=== PATIENT | female | born 1960 ===

== ENCOUNTER 2017-11-02 08:04 | Emergency (ER) | payer BC, OTHER ==
[2017-11-02 08:39] LABS: ABS Basophils 0.1 10^3/ul (0-0.2); ABS Eosinophils 0.1 10^3/ul (0-0.6); ABS Lymphocytes 1.2 10^3/ul (1.0-4.8); ABS Monocytes 0.8 10^3/ul (0-0.8); ABS Neutrophils 9.3 10^3/ul (1.5-7.7); ABS Nucleated RBC 0 10^3/ul; Eosinophil % 0.7 % (0-6); Hematocrit 39 % (35-47); Hemoglobin 13.5 g/dl (12.0-16.0); Lymphocyte % 10.3 % (25-47); Mean Corpuscular HGB Conc 35 g/dl (31-36); Mean Corpuscular Hemoglobin 31 pg (27-31); Mean Corpuscular Volume 90 fL (80-97); Mean Platelet Volume 6.8 um3 (7.4-10.4); Nucleated Red Blood Cells % 0; Platelet Count 346 10^3/ul (150-450); Red Blood Count 4.36 10^6/ul (4.0-5.4); Red Cell Distribution Width 16 % (10.5-15); White Blood Count 11.5 10^3/ul (3.5-10.8)
[2017-11-02 08:50] LABS: Urine Appearance Cloudy; Urine Blood Negative (Negative); Urine Color Yellow; Urine Ketones Negative (Negative); Urine Protein Negative (Negative); Urine Urobilinogen Negative (Negative)
[2017-11-02 08:57] LABS: EGFR Non-African American 71.1 (>60)
[2017-11-02] MEDS ORDERED: Iohexol 300* (CONTRAST) 10 ML SDV IV ONE (09:15)
[2017-11-02] MEDS ORDERED: Morphine INJ* 4 MG/ML 1 ML SYRINGE (NEW SYRINGE VERSION) IV ONE (10:54)
[2017-11-02] MEDS ORDERED: Ondansetron INJ* 2 MG/ML VIAL IV ONE (10:54)
[2017-11-02] MEDS ORDERED: Morphine VIAL* 4 MG/ML VIAL (1 ml vial) IV ONE (10:55)
[2017-11-02] MEDS ORDERED: Ondansetron INJ* 2 MG/ML VIAL ONE (10:56)
--- NOTE | 2017-11-02 11:55 | RAD ---
Indication: Lower abdominal pain. Contrast: Administered 91.2 ml of OMNIPAQUE 350 mg/ml CT of the abdomen and pelvis was performed after oral and IV contrast administration. Coronal and sagittal reconstructed images were obtained. No prior study is available for comparison The lung bases demonstrate no pleural fluid, nodules or masses. Heart is of normal size without evidence of pericardial effusion. The liver is normal in size. It is diffusely decreased in density consistent with hepatic steatosis. Areas of high density are noted adjacent to the gallbladder fossa which may represent focal areas of fatty sparing. Pancreas demonstrates no mass or pancreatic duct dilatation. The common duct is not dilated. The spleen is normal in size. No adrenal lesions are noted. The kidneys demonstrate symmetric nephrograms without focal lesions. No adrenal lesions are noted. No hydronephrosis of either kidney is noted. No retroperitoneal lymphadenopathy is noted. CT of the pelvis demonstrates diverticula colitis of the sigmoid colon with peridiverticular infiltration of fat consistent with edema. I cannot totally exclude a small peridiverticular abscess inferior to the colon. Uterus and ovaries are unremarkable. The urinary bladder is unremarkable. No hernias are noted. Contrast is noted in the colon. Urinary bladder is unremarkable. IMPRESSION: Diverticulitis of the sigmoid colon. There may be a small peridiverticular abscess inferior to the colon however this is poorly defined. Hepatic steatosis with focal area of fatty sparing surrounding the gallbladder fossa.
[2017-11-02] MEDS ORDERED: Ciprofloxacin 400MG IVPREMIX(* 400 MG/200 ML BAG IVPB ONE (12:02)
[2017-11-02] MEDS ORDERED: metroNIDAZOLE TAB* 250 MG PO ONE (12:02)
[2017-11-02 13:06] VITALS: BP 105/71
--- NOTE | 2017-11-03 10:02 | ED ---
Efraín Villa Angela, scribed for Lamine Burgos MD on 11/02/17 at 0835 . Abdominal Pain/Female - HPI Summary HPI Summary: This pt is a 57 y/o female presenting to [facility] c/o lower abdominal pain since yesterday. Pt reports nausea and diarrhea. Denies vomiting. Pt currently rates her pain 9/10 in severity. Pt states her last bowel movement was this morning. Pt has hx of diverticulitis and notes he has pain sometimes from this. Today pt reports her pain is similar to diverticulitis but is more severe. - History of Current Complaint Chief Complaint: EDAbdPain Stated Complaint: ABD PAIN Time Seen by Provider: 11/02/17 08:14 Hx Obtained From: Patient Onset/Duration: Lasting Days, Still Present Timing: Days Severity Currently: Severe Pain Intensity: 9 Pain Scale Used: 0-10 Numeric Location: Other - lower abdominal Radiates: No Aggravating Factor(s): Nothing Alleviating Factor(s): Nothing Associated Signs and Symptoms: Positive: Nausea, Diarrhea. Negative: Fever, Vomiting Allergies/Adverse Reactions: Allergies Allergy/AdvReac Type Severity Reaction Status Date / Time citalopram [From Celexa] AdvReac Mild GI Upset Verified 11/02/17 12:23 Home Medications: Home Medications Cyclobenzaprine TAB* [Flexeril 10 MG TAB*] 5 mg PO BID PRN 11/02/17 [History Confirmed 11/02/17] Docusate CAP* [Colace Cap*] 100 mg PO DAILY PRN 11/02/17 [History Confirmed 09/20] Omeprazole CAP* [Prilosec CAP* 20 MG] 20 mg PO DAILY 11/02/17 [History Confirmed 11/02/17] Polyethylene Glycol 3350* [Miralax*] 17 gm PO DAILY PRN 11/02/17 [History Confirmed 11/02/17] PMH/Surg Hx/FS Hx/Imm Hx Endocrine/Hematology History: Denies: Hx Diabetes Cardiovascular History: Denies: Hx Hypertension GI History: Reports: Other GI Disorders - diverticulitis Neurological History: Reports: Other Neuro Impairments/Disorders - fibromyalgia Infectious Disease History: No Infectious Disease History: Denies: Traveled Outside the [place] in Last 30 Days - Family History Known Family History: Negative: Diabetes - Social History Alcohol Use: None Substance Use Type: Reports: None Smoking Status (MU): Unknown if Ever Smoked Review of Systems Negative: Fever ENT: Negative Cardiovascular: Negative Positive: Abdominal Pain, Diarrhea, Nausea. Negative: Vomiting Musculoskeletal: Negative Skin: Negative Neurological: Negative All Other Systems Reviewed And Are Negative: Yes Physical Exam - Summary Physical Exam Summary: VITAL SIGNS: Reviewed. GENERAL: Patient is a well-developed and nourished female who is lying comfortable in the stretcher. Patient is not in any acute respiratory distress. HEAD AND FACE: Normocephalic and atraumatic. EYES: PERRLA, EOMI x 2, No injected conjunctiva. EARS: Hearing grossly intact. Ear canals and tympanic membranes are WNL. MOUTH: Oropharynx within normal limits. NECK: Supple, trachea is midline, no adenopathy, no JVD. CHEST: Symmetric, no tenderness at palpation LUNGS: Clear to auscultation bilaterally. No wheezing or crackles. CVS: RRR, S1 and S2 present, no murmurs or gallops appreciated. ABDOMEN: Soft. Bilateral lower abdominal tenderness. No signs of distention. Positive bowel sounds. No rebound no guarding, and no masses palpated. No abdominal bruit or pulsations. EXTREMITIES: FROM in all major joints, no edema, no cyanosis or clubbing. NEURO: Alert and oriented x 3. No acute neurological deficits. Speech is normal. SKIN: Dry and warm Triage Information Reviewed: Yes Vital Signs On Initial Exam: Initial Vitals Temp Pulse Resp BP Pulse Ox 98.4 F 102 20 124/83 95 11/02/17 08:10 11/02/17 08:10 11/02/17 08:10 11/02/17 08:10 11/02/17 08:10 Vital Signs Reviewed: Yes Diagnostics - Vital Signs Vital Signs Temp Pulse Resp BP Pulse Ox 11/02/17 08:10 98.4 F 102 20 124/83 95 - Laboratory Result Diagrams: 11/02/17 08:28 11/02/17 08:28 Lab Statement: Any lab studies that have been ordered have been reviewed, and results considered in the medical decision making process. - CT Abdomen/Pelvis CT CT Interpretation: Positive (See Comments) - IMPRESSION: Diverticulitis of the sigmoid colon. There may be a small peridiverticular abscess inferior to the colon however this is poorly defined. Hepatic steatosis with focal area of fatty sparing surrounding the gallbladder fossa. Dr. Burgos has reviewed this radiology report. CT Interpretation Completed By: Radiologist - EKG 08:26 Cardiac Rate: NL EKG Rhythm: Sinus Rhythm - at 96 bpm EKG Interpretation: No ST elevations. Normal axis. Re-Evaluation - Re-Evaluation First Eval Re-Evaluation Time: 12:33 Comment: I reviewed the lab and CT results with the pt. She will be discharged home. Abdominal Pain Fem Course/Dx - Course Course Of Treatment: This pt is a 57 y/o female presenting to [facility] c/o lower abdominal pain since yesterday. Pt reports nausea and diarrhea. Denies vomiting. Pt currently rates her pain 9/10 in severity. Pt states her last bowel movement was this morning. Pt has hx of diverticulitis and notes he has pain sometimes from this. Today pt reports her pain is similar to diverticulitis but is more severe. Test results shows WBC of 11.5, glucose of 155, CRP of 70.15, lipase <10. Urinalysis is negative for UTI. Abdomen/Pelvis CT shows diverticulitis of the sigmoid colon. There may be a small peridiverticular abscess inferior to the colon however this is poorly defined. Hepatic steatosis with focal area of fatty sparing surrounding the gallbladder fossa. In the ED course the pt was given Ciprofloxacin, Flagyl, morphine for the pain, and Zofran for the nausea. Pt reports she is feeling better after these medications. Therefore she will be discharged to home with follow up from her PCP. I discussed all the findings and test results with the patient. All questions were answered to patient satisfaction. There were no further complaints or concerns. She is instructed to return to the ED for any worsening or new symptoms. Pt is hemodynamically stable, alert and oriented x3. - Diagnoses Provider Diagnoses: Diverticulitis Discharge - Sign-Out/Discharge Documenting (check all that apply): Discharge - discharge to home - Discharge Plan Condition: Stable Disposition: HOME Prescriptions: Ciprofloxacin TAB* [Cipro 500 MG TAB*] 500 mg PO BID #20 tab metroNIDAZOLE [Flagyl 500 MG TAB] 500 mg PO TID #30 tab Patient Education Materials: Diverticulitis (ED) Referrals: Nola Carrasquillo MD [Primary Care Provider] - 3 Days Additional Instructions: Please follow up with your primary care provider. RETURN TO THE ED FOR ANY NEW OR WORSENING SYMPTOMS. The documentation as recorded by the scribe, Kenny,Dulce accurately reflects the service I personally performed and the decisions made by me, Lamine Burgos MD.
== END 2017-11-02 13:06 | disposition home or self-care (01) ==
LOC: ED 08:04
DX: K57.32 Diverticulitis of large intestine without perforation or abscess without bleeding (principal); Z88.8 Allergy status to other drugs, medicaments and biological substances; Z79.899 Other long term (current) drug therapy
CPT/HCPCS: 36415; 74177; 80053; 81003; 83605; 83690; 85025; 86140; 93005; 96365; 96375; 99282; A9270-GY; J0744; J2270; J2405; Q9967

== ENCOUNTER 2020-02-20 09:37 | Inpatient (IN) ==
[2020-02-20] MEDS ORDERED: NS 0.9% 1000 ml BAG 1,000 ML IV ONE ×2 (09:45→09:54)
[2020-02-20] MEDS ORDERED: Piperacillin/Tazobac ADVAN 3.375 GM in NS 0.9% 100 ml BAG 100 ML IVPB ONE (09:47)
[2020-02-20] MEDS ORDERED: Ondansetron 4 mg VIAL 2 MG/ML 2 ml VIAL IV ONE (10:09)
[2020-02-20] MEDS ORDERED: Morphine 4 MG/ML VIAL (1 ml) IV ONE ×2 (10:09→11:28)
[2020-02-20 10:21] LABS: Hematocrit 46 % (35-47); Hemoglobin 16.3 g/dL (12.0-16.0); Mean Corpuscular HGB Conc 36 g/dL (31-36); Mean Corpuscular Hemoglobin 33 pg (27-31); Mean Corpuscular Volume 92 fL (80-97); Mean Platelet Volume 7.1 fL (7.4-10.4); Platelet Count 367 10^3/uL (150-450); Red Blood Count 4.96 10^6 /uL (3.70-4.87); Red Cell Distribution Width 14 % (10-15); White Blood Count 3.2 10^3/uL (3.5-10.8)
[2020-02-20 10:26] LABS: INR 0.98 (0.82-1.09)
[2020-02-20] MEDS ORDERED: Iodixanol (CONTRAST) 320 MG/ML 100 ML SDV IV ONE (10:28)
[2020-02-20 10:29] LABS: Albumin/Globulin Ratio 1.3 (1-3); BUN/Creatinine Ratio 27.6 (8-20); C Reactive Protein 35.93 mg/L (<8.01); Calcium 9.6 mg/dL (8.6-10.3); EGFR African American 94.6 (>60); EGFR Non-African American 78.2 (>60); Globulin 3.1 g/dL (2-4); Potassium 3.6 mmol/L (3.5-5.0); Total Bilirubin 0.8 mg/dL (0.2-1.0); Total Protein 7.1 g/dL (6.4-8.9)
[2020-02-20 10:53] LABS: ABS Lymphocytes 1.1 10^3/ul (1.0-4.8); ABS Monocytes 0.1 10^3/ul (0-0.8); Eosinophil % 0.4 %; Nucleated Red Blood Cells % 0.2
[2020-02-20] MEDS ORDERED: HYDROmorphone 0.5 MG/0.5 ML SYRINGE IV SLOW PU PRN (11:38)
[2020-02-20] MEDS ORDERED: Ondansetron 4 mg VIAL 2 MG/ML 2 ml VIAL IV PRN ×2 (11:38→14:11)
[2020-02-20] MEDS ORDERED: Midazolam 2 mg/2 ml VIAL 1 mg/ml 2 ml VIAL (2 mg) ONE (12:32)
[2020-02-20] MEDS ORDERED: fentaNYL 100 mcg/2 ml 50 MCG/ML VIAL ONE (12:32)
[2020-02-20] MEDS ORDERED: Succinylcholine 200 mg VIAL 20 mg/ml 10 ml VIAL (200 mg) ONE (12:33)
[2020-02-20] MEDS ORDERED: Phenylephrine 40 mcg/mL 10mL (400mcg) SYRINGE ONE (12:33)
[2020-02-20] MEDS ORDERED: Ondansetron 4 mg VIAL 2 MG/ML 2 ml VIAL ONE (12:33)
[2020-02-20] MEDS ORDERED: Metoclopramide 5 MG/ML VIAL (10 mg) ONE (12:33)
[2020-02-20] MEDS ORDERED: Sodium Chloride 0.9% 10 ML ONE (12:33)
[2020-02-20] MEDS ORDERED: Dexamethasone IV 4 MG/ML VIAL 1 ml VIAL ONE (12:33)
[2020-02-20] MEDS ORDERED: EPHEDrine (Pressors) 50 MG/ML VIAL ONE (12:33)
[2020-02-20] MEDS ORDERED: Propofol 10 MG/ML 20 ML BTL ONE (12:33)
[2020-02-20] MEDS ORDERED: Lidocaine 2% PF 5 ML VIAL ONE (12:34)
[2020-02-20] MEDS ORDERED: Rocuronium 50 mg VIAL 10 mg/ml 5 ml VIAL (50 mg) ONE ×2 (13:03→15:03)
[2020-02-20] MEDS ORDERED: fentaNYL 250 mcg/5 ml 50 MCG/ML 5 ml VIAL (250 MCG) ONE (13:36)
[2020-02-20] MEDS ORDERED: fentaNYL 100 mcg/2 ml 50 MCG/ML VIAL IV PRN (14:11)
[2020-02-20] MEDS ORDERED: Naloxone 0.4 mg VIAL 0.4 mg/ml 1 ml VIAL IV PRN (14:11)
[2020-02-20] MEDS ORDERED: DiMENhydriNATE IV 50 mg/ml 1 ml VIAL IV PUSH PRN (14:11)
[2020-02-20] MEDS ORDERED: PIPERACILLIN IVPB ONE (14:54)
[2020-02-20] MEDS ORDERED: TAZOBACTAM IVPB ONE (14:54)
[2020-02-20] MEDS: HYDROmorphone 1 MG/1 ML SYRINGE IV PRN ×3 (15:57→16:39)
[2020-02-20] MEDS ORDERED: HYDROmorphone 1 MG/1 ML SYRINGE ONE (15:57)
[2020-02-20] MEDS ORDERED: Naloxone 0.4 mg VIAL 0.4 mg/ml 1 ml VIAL IV PUSH PRN (16:08)
[2020-02-20] MEDS: HYDROmorphone PCA 20 MG/20 ML PCA.SYRING PCA SCH (16:56)
[2020-02-20] MEDS: NS 0.9% 1000 ml BAG 1,000 ML IV SCH (18:17)
[2020-02-20] MEDS: Piperacillin/Tazobac ADVAN 3.375 GM in NS 0.9% 100 ml BAG 100 ML IV SCH (21:23)
[2020-02-21] MEDS ORDERED: NS 0.9% 1000 ML/HR X 1 BAG (TOTAL 1000 ML) IV ONE (00:30)
[2020-02-21 00:50] LABS: Urine Appearance Clear; Urine Bilirubin Negative (Negative); Urine Blood 1+ (Negative); Urine Color Yellow; Urine Glucose 3+(>=500 mg/dL) (Negative); Urine Ketones Trace (Negative); Urine Nitrite Negative (Negative); Urine Protein Negative (Negative); Urine Specific Gravity 1.031 (1.010-1.030); Urine Urobilinogen Negative (Negative)
[2020-02-21 00:53] LABS: Urine Bacteria 1+ (Absent); Urine Red Blood Cell Trace(0-2/hpf) (Absent); Urine Squamous Epithelial Cell Present (Absent); Urine White Blood Cell Trace(0-5/hpf) (Absent)
[2020-02-21] MEDS: NS 0.9% 1000 ml BAG 1,000 ML IV SCH ×3 (03:18→21:40)
[2020-02-21] MEDS: Piperacillin/Tazobac ADVAN 3.375 GM in NS 0.9% 100 ml BAG 100 ML IV SCH ×3 (05:02→21:52)
[2020-02-21] MEDS: Heparin 5000 UNITS/ML 1 mL VIAL SUBCUT SCH ×3 (05:02→21:40)
[2020-02-21 06:11] LABS: BUN/Creatinine Ratio 20.4 (8-20); Calcium 7.4 mg/dL (8.6-10.3); EGFR African American 140.3 (>60); Magnesium 1.3 mg/dL (1.9-2.7); Phosphorus 3.2 mg/dL (2.5-5.0); Potassium 3.3 mmol/L (3.5-5.0)
[2020-02-21 06:17] LABS: ABS Lymphocytes 0.4 10^3/ul (1.0-4.8); ABS Monocytes 0.3 10^3/ul (0-0.8); ABS Neutrophils 6.4 10^3/ul (1.5-7.7); Eosinophil % 0.1 %; Hematocrit 37 % (35-47); Hemoglobin 13.3 g/dL (12.0-16.0); Lymphocyte % 6.2 %; Mean Corpuscular HGB Conc 36 g/dL (31-36); Mean Corpuscular Hemoglobin 33 pg (27-31); Mean Corpuscular Volume 92 fL (80-97); Mean Platelet Volume 6.9 fL (7.4-10.4); Platelet Count 249 10^3/uL (150-450); Red Cell Distribution Width 15 % (10-15); White Blood Count 7.2 10^3/uL (3.5-10.8)
[2020-02-21] MEDS ORDERED: Magnesium Sulfate 2 gm BAG 2 GM/50 ML BAG IVPB ONE (07:33)
[2020-02-21] MEDS: KCL 10 MEQ/50 ML IVPREMIX 10 MEQ/50 ML BAG IV SCH ×2 (09:38→11:29)
[2020-02-21] MEDS ORDERED: Magnesium Sulfate IV 1GM/100ML 1 GM/100 ML BAG IV ONE (12:02)
[2020-02-21] MEDS ORDERED: KCL 20 MEQ/100 ML IVPREMIX 20 MEQ/100 ML BAG IV SCH (13:00)
[2020-02-21] MEDS: CMCS: diPHENhydraMINE CREAM 2%(NF) 28 gm TUBE TOPICAL SCH ×2 (14:30→22:47)
[2020-02-21] MEDS ORDERED: Potassium Phosphate IV 15 MMOLE in NS 0.9% 250 ml 250 ML IVPB ONE (15:00)
[2020-02-21] MEDS: HYDROmorphone PCA 20 MG/20 ML PCA.SYRING PCA SCH (19:14)
[2020-02-22] MEDS: Heparin 5000 UNITS/ML 1 mL VIAL SUBCUT SCH ×3 (05:21→21:26)
[2020-02-22] MEDS: Piperacillin/Tazobac ADVAN 3.375 GM in NS 0.9% 100 ml BAG 100 ML IV SCH ×3 (05:21→20:59)
[2020-02-22] MEDS: NS 0.9% 1000 ml BAG 1,000 ML IV SCH (05:32)
[2020-02-22 05:33] LABS: ABS Lymphocytes 0.4 10^3/ul (1.0-4.8); ABS Monocytes 0.1 10^3/ul (0-0.8); ABS Neutrophils 4.9 10^3/ul (1.5-7.7); Eosinophil % 0.8 %; Hematocrit 29 % (35-47); Hemoglobin 10.4 g/dL (12.0-16.0); Lymphocyte % 7.8 %; Mean Corpuscular HGB Conc 36 g/dL (31-36); Mean Corpuscular Hemoglobin 33 pg (27-31); Mean Corpuscular Volume 92 fL (80-97); Mean Platelet Volume 6.5 fL (7.4-10.4); Nucleated Red Blood Cells % 0.1; Platelet Count 199 10^3/uL (150-450); Red Blood Count 3.15 10^6 /uL (3.70-4.87); Red Cell Distribution Width 15 % (10-15); White Blood Count 5.5 10^3/uL (3.5-10.8)
[2020-02-22 05:49] LABS: BUN/Creatinine Ratio 23.3 (8-20); Calcium 7.7 mg/dL (8.6-10.3); EGFR African American 182.5 (>60); EGFR Non-African American 150.8 (>60); Magnesium 2.1 mg/dL (1.9-2.7); Phosphorus 1.6 mg/dL (2.5-5.0); Potassium 3.5 mmol/L (3.5-5.0)
[2020-02-22] MEDS ORDERED: Potassium Phosphate IV 15 MMOLE in NS 0.9% 250 ml 250 ML IVPB ONE (09:06)
[2020-02-22] MEDS: CMCS: diPHENhydraMINE CREAM 2%(NF) 28 gm TUBE TOPICAL SCH ×3 (10:06→21:26)
[2020-02-22] MEDS: diPHENhydraMINE IV 50 MG/ML 1 ml VIAL (BENADRYL) IV PRN ×2 (10:26→19:13)
[2020-02-22] MEDS: D5W 1/2 NS KCl 20 meq 1000 ml 1,000 ML IV SCH ×2 (11:00→20:43)
[2020-02-23] MEDS: Piperacillin/Tazobac ADVAN 3.375 GM in NS 0.9% 100 ml BAG 100 ML IV SCH ×3 (04:49→21:16)
[2020-02-23] MEDS: D5W 1/2 NS KCl 20 meq 1000 ml 1,000 ML IV SCH ×3 (04:50→18:23)
[2020-02-23] MEDS: Heparin 5000 UNITS/ML 1 mL VIAL SUBCUT SCH (05:46)
[2020-02-23 07:20] LABS: ABS Eosinophils 0.1 10^3/ul (0-0.6); ABS Lymphocytes 0.6 10^3/ul (1.0-4.8); ABS Monocytes 0.1 10^3/ul (0-0.8); ABS Neutrophils 3.6 10^3/ul (1.5-7.7); Eosinophil % 2.9 %; Hematocrit 24 % (35-47); Hemoglobin 8.3 g/dL (12.0-16.0); Lymphocyte % 13.9 %; Mean Corpuscular HGB Conc 35 g/dL (31-36); Mean Corpuscular Hemoglobin 33 pg (27-31); Mean Corpuscular Volume 94 fL (80-97); Mean Platelet Volume 7.4 fL (7.4-10.4); Nucleated Red Blood Cells % 0.1; Platelet Count 179 10^3/uL (150-450); Red Blood Count 2.55 10^6 /uL (3.70-4.87); Red Cell Distribution Width 15 % (10-15); White Blood Count 4.5 10^3/uL (3.5-10.8)
[2020-02-23 07:36] LABS: BUN/Creatinine Ratio 15.9 (8-20); Calcium 7.5 mg/dL (8.6-10.3); EGFR African American 177.7 (>60); EGFR Non-African American 146.9 (>60); Phosphorus 1.6 mg/dL (2.5-5.0); Potassium 3.5 mmol/L (3.5-5.0)
[2020-02-23] MEDS: diPHENhydraMINE IV 50 MG/ML 1 ml VIAL (BENADRYL) IV PRN ×2 (09:26→21:20)
[2020-02-23] MEDS: CMCS: diPHENhydraMINE CREAM 2%(NF) 28 gm TUBE TOPICAL SCH ×3 (09:31→21:21)
[2020-02-23] MEDS: HYDROmorphone PCA 20 MG/20 ML PCA.SYRING PCA SCH (10:33)
[2020-02-23] MEDS ORDERED: Potassium Phosphate IV 15 MMOLE in NS 0.9% 250 ml 250 ML IVPB ONE (10:39)
[2020-02-24] MEDS: Piperacillin/Tazobac ADVAN 3.375 GM in NS 0.9% 100 ml BAG 100 ML IV SCH ×3 (05:16→21:33)
[2020-02-24 07:04] LABS: Hematocrit 29 % (35-47); Hemoglobin 10.2 g/dL (12.0-16.0); Mean Corpuscular HGB Conc 35 g/dL (31-36); Mean Corpuscular Hemoglobin 33 pg (27-31); Mean Corpuscular Volume 93 fL (80-97); Mean Platelet Volume 6.8 fL (7.4-10.4); Platelet Count 182 10^3/uL (150-450); Red Blood Count 3.13 10^6 /uL (3.70-4.87); Red Cell Distribution Width 15 % (10-15)
[2020-02-24 07:21] LABS: Albumin 2.5 g/dL (3.2-5.2); Albumin/Globulin Ratio 0.9 (1-3); BUN/Creatinine Ratio 11.6 (8-20); Calcium 7.6 mg/dL (8.6-10.3); EGFR African American 182.5 (>60); EGFR Non-African American 150.8 (>60); Globulin 2.8 g/dL (2-4); Phosphorus 2.9 mg/dL (2.5-5.0); Potassium 3.3 mmol/L (3.5-5.0); Total Bilirubin 1.2 mg/dL (0.2-1.0); Total Protein 5.3 g/dL (6.4-8.9)
[2020-02-24] MEDS: CMCS: diPHENhydraMINE CREAM 2%(NF) 28 gm TUBE TOPICAL SCH ×3 (07:49→21:34)
[2020-02-24 08:32] LABS: ABS Eosinophils 0.1 10^3/ul (0-0.6); ABS Lymphocytes 0.4 10^3/ul (1.0-4.8); ABS Monocytes 0.2 10^3/ul (0-0.8); ABS Neutrophils 3.3 10^3/ul (1.5-7.7); Eosinophil % 3.4 %; Lymphocyte % 9.3 %; Nucleated Red Blood Cells % 0.1
[2020-02-24] MEDS: oxyCODONE/Acetamin 5/325 mg TAB PO PRN ×3 (11:14→21:47)
[2020-02-24] MEDS: Potassium Chlor 10 meq TAB PO SCH ×2 (11:14→21:34)
[2020-02-25] MEDS: oxyCODONE/Acetamin 5/325 mg TAB PO PRN (04:28)
[2020-02-25] MEDS: Piperacillin/Tazobac ADVAN 3.375 GM in NS 0.9% 100 ml BAG 100 ML IV SCH ×3 (04:56→21:16)
[2020-02-25] MEDS: Potassium Chlor 10 meq TAB PO SCH ×2 (08:53→21:16)
[2020-02-25] MEDS: CMCS: diPHENhydraMINE CREAM 2%(NF) 28 gm TUBE TOPICAL SCH ×3 (10:19→21:16)
[2020-02-25 10:22] LABS: BUN/Creatinine Ratio 12.5 (8-20); Calcium 8.1 mg/dL (8.6-10.3); EGFR African American 198.4 (>60); EGFR Non-African American 163.9 (>60); Potassium 3.5 mmol/L (3.5-5.0)
[2020-02-26] MEDS: Piperacillin/Tazobac ADVAN 3.375 GM in NS 0.9% 100 ml BAG 100 ML IV SCH ×3 (05:12→20:37)
[2020-02-26] MEDS: Potassium Chlor 10 meq TAB PO SCH ×2 (08:47→20:37)
[2020-02-26] MEDS: CMCS: diPHENhydraMINE CREAM 2%(NF) 28 gm TUBE TOPICAL SCH ×3 (08:47→20:40)
[2020-02-26] MEDS: oxyCODONE/Acetamin 5/325 mg TAB PO PRN (10:00)
[2020-02-26] MEDS: HYDROmorphone PCA 20 MG/20 ML PCA.SYRING PCA SCH (10:32)
[2020-02-27] MEDS: Piperacillin/Tazobac ADVAN 3.375 GM in NS 0.9% 100 ml BAG 100 ML IV SCH (04:30)
[2020-02-27] MEDS: CMCS: diPHENhydraMINE CREAM 2%(NF) 28 gm TUBE TOPICAL SCH ×3 (08:30→21:40)
[2020-02-27] MEDS: Potassium Chlor 10 meq TAB PO SCH ×2 (08:30→21:39)
[2020-02-27] MEDS: oxyCODONE/Acetamin 5/325 mg TAB PO PRN ×2 (13:23→20:10)
[2020-02-27] MEDS: Amoxicillin/Clavul 875/125 TAB (Augmentin 875 tab) PO SCH (21:39)
[2020-02-28] MEDS: oxyCODONE/Acetamin 5/325 mg TAB PO PRN ×3 (01:30→13:10)
[2020-02-28] MEDS: CMCS: diPHENhydraMINE CREAM 2%(NF) 28 gm TUBE TOPICAL SCH ×2 (08:39→13:51)
[2020-02-28] MEDS: Potassium Chlor 10 meq TAB PO SCH (08:39)
[2020-02-28] MEDS: Amoxicillin/Clavul 875/125 TAB (Augmentin 875 tab) PO SCH (08:39)
[2020-02-28 12:22] VITALS: BP 118/72
== END 2020-02-28 15:20 | disposition home health service (06) | DRG 330 ==
LOC: ED 09:37 → SSU 11:38
PROVIDERS: ADMIT Surgery; ATTEND Surgery

== ENCOUNTER 2020-05-23 05:49 | Inpatient (IN) ==
[~2020-05-23 05:49] MED LIST: Ertapenem 1 GM in NS 0.9% 50 ML BAG IVPB SCH
[2020-05-23] MEDS ORDERED: Famotidine IV 10 MG/ML 2 ml VIAL (20 mg) IV ONE (06:00)
[2020-05-23] MEDS ORDERED: Buffered Lidocaine 1% SYRIN 1 ml INTRADERM ONE (06:00)
[2020-05-23] MEDS ORDERED: Lactated Ringers 1000 ml BAG 1,000 ML IV SCH ×2 (06:00→15:00)
[2020-05-23] MEDS ORDERED: DiMENhydriNATE IV 50 mg/ml 1 ml VIAL IV PUSH ONE (06:00)
[2020-05-23] MEDS ORDERED: DiMENhydriNATE IV 50 mg/ml 1 ml VIAL ONE (06:11)
[2020-05-23] MEDS ORDERED: Heparin 5000 UNITS/ML 1 mL VIAL ONE (06:11)
[2020-05-23] MEDS ORDERED: Famotidine IV 10 MG/ML 2 ml VIAL (20 mg) ONE (06:12)
[2020-05-23] MEDS ORDERED: Dexmedetomidine 200 mcg/2 ml 2 ml VIAL (200 mcg) ONE (07:00)
[2020-05-23] MEDS ORDERED: Ketamine HCL 50 mg/ml 10 ml VIAL (500 MG) ONE (07:00)
[2020-05-23] MEDS ORDERED: Lidocaine 2% PF 5 ML VIAL ONE (07:00)
[2020-05-23] MEDS ORDERED: Phenylephrine 40 mcg/mL 10mL (400mcg) SYRINGE ONE (07:00)
[2020-05-23] MEDS ORDERED: fentaNYL 100 mcg/2 ml 50 MCG/ML VIAL ONE ×3 (07:00→14:35)
[2020-05-23] MEDS ORDERED: Rocuronium 50 mg VIAL 10 mg/ml 5 ml VIAL (50 mg) ONE ×2 (07:00→09:45)
[2020-05-23] MEDS ORDERED: Midazolam 2 mg/2 ml VIAL 1 mg/ml 2 ml VIAL (2 mg) ONE (07:01)
[2020-05-23] MEDS ORDERED: Propofol 10 MG/ML 20 ML BTL ONE (07:07)
[2020-05-23] MEDS ORDERED: Bupivacaine 0.25% SDV 30 ML ONE (07:16)
[2020-05-23] MEDS ORDERED: Prochlorperazine 5 mg/ml 2 ml VIAL (10 mg) IV PRN (07:32)
[2020-05-23] MEDS ORDERED: Morphine 4 MG/ML VIAL (1 ml) IV PRN (07:32)
[2020-05-23] MEDS ORDERED: Naloxone 0.4 mg VIAL 0.4 mg/ml 1 ml VIAL IV PRN (07:32)
[2020-05-23] MEDS ORDERED: Ondansetron 4 mg VIAL 2 MG/ML 2 ml VIAL ONE (10:22)
[2020-05-23] MEDS ORDERED: Acetaminophen IV 1 GM/100ML 100 ML ONE (13:44)
[2020-05-23] MEDS ORDERED: HYDROmorphone 1 MG/1 ML SYRINGE ONE (13:54)
[2020-05-23] MEDS: fentaNYL 100 mcg/2 ml 50 MCG/ML VIAL IV PRN ×2 (14:35→15:06)
[2020-05-23] MEDS ORDERED: Dextrose 50% Syringe 50 ml 25 GM/50 ML SYRINGE IV PUSH PRN (14:47)
[2020-05-23] MEDS: HYDROmorphone 0.5 MG/0.5 ML SYRINGE IV SLOW PU PRN ×2 (15:55→21:38)
[2020-05-23] MEDS: Lactated Ringers 1000 ml BAG 1,000 ML IV SCH (23:27)
[2020-05-24] MEDS: HYDROmorphone 0.5 MG/0.5 ML SYRINGE IV SLOW PU PRN ×3 (01:27→08:43)
[2020-05-24 06:07] LABS: ABS Eosinophils 0.1 10^3/ul (0-0.6); ABS Lymphocytes 0.8 10^3/ul (1.0-4.8); ABS Monocytes 0.5 10^3/ul (0-0.8); ABS Neutrophils 5.8 10^3/ul (1.5-7.7); Eosinophil % 0.8 %; Hematocrit 35 % (35-47); Hemoglobin 12.2 g/dL (12.0-16.0); Lymphocyte % 10.8 %; Mean Corpuscular HGB Conc 35 g/dL (31-36); Mean Corpuscular Hemoglobin 31 pg (27-31); Mean Corpuscular Volume 90 fL (80-97); Mean Platelet Volume 6.9 fL (7.4-10.4); Nucleated Red Blood Cells % 0.1; Platelet Count 230 10^3/uL (150-450); Red Blood Count 3.93 10^6 /uL (3.70-4.87); Red Cell Distribution Width 14 % (10-15); White Blood Count 7.1 10^3/uL (3.5-10.8)
[2020-05-24] MEDS: Lactated Ringers 1000 ml BAG 1,000 ML IV SCH ×3 (06:08→23:18)
[2020-05-24 06:21] LABS: BUN/Creatinine Ratio 15.9 (8-20); EGFR African American 117.4 (>60); EGFR Non-African American 97.1 (>60); Potassium 3.5 mmol/L (3.5-5.0)
[2020-05-24] MEDS: Heparin 5000 UNITS/ML 1 mL VIAL SUBCUT SCH ×3 (08:39→21:37)
[2020-05-24] MEDS ORDERED: NS 0.9% 1000 ml BAG 1,000 ML IV ONE (16:11)
[2020-05-25] MEDS: Ondansetron 4 mg VIAL 2 MG/ML 2 ml VIAL IV PRN (04:17)
[2020-05-25] MEDS: HYDROmorphone 0.5 MG/0.5 ML SYRINGE IV SLOW PU PRN (04:17)
[2020-05-25] MEDS: Heparin 5000 UNITS/ML 1 mL VIAL SUBCUT SCH ×3 (05:22→21:40)
[2020-05-25] MEDS: Lactated Ringers 1000 ml BAG 1,000 ML IV SCH ×2 (06:01→23:49)
[2020-05-25 07:04] LABS: ABS Eosinophils 0.1 10^3/ul (0-0.6); ABS Lymphocytes 0.9 10^3/ul (1.0-4.8); ABS Monocytes 0.3 10^3/ul (0-0.8); ABS Neutrophils 4.6 10^3/ul (1.5-7.7); Eosinophil % 1.5 %; Hematocrit 31 % (35-47); Hemoglobin 10.9 g/dL (12.0-16.0); Lymphocyte % 14.8 %; Mean Corpuscular HGB Conc 36 g/dL (31-36); Mean Corpuscular Hemoglobin 32 pg (27-31); Mean Corpuscular Volume 90 fL (80-97); Mean Platelet Volume 6.8 fL (7.4-10.4); Platelet Count 204 10^3/uL (150-450); Red Blood Count 3.43 10^6 /uL (3.70-4.87); Red Cell Distribution Width 14 % (10-15)
[2020-05-25 07:23] LABS: Calcium 8.4 mg/dL (8.6-10.3); EGFR African American 153.3 (>60); EGFR Non-African American 126.7 (>60); Magnesium 1.7 mg/dL (1.9-2.7); Potassium 3.5 mmol/L (3.5-5.0)
[2020-05-25] MEDS ORDERED: Magnesium Sulfate 2 gm BAG 2 GM/50 ML BAG IVPB ONE (07:55)
[2020-05-25] MEDS ORDERED: Magnesium Sulfate 2 gm BAG 2 GM/50 ML BAG ONE (08:56)
[2020-05-25] MEDS: KCL 10 MEQ/50 ML IVPREMIX 10 MEQ/50 ML BAG IV SCH ×2 (11:11→12:37)
[2020-05-26] MEDS: HYDROmorphone 0.5 MG/0.5 ML SYRINGE IV SLOW PU PRN (00:16)
[2020-05-26] MEDS: Ondansetron 4 mg VIAL 2 MG/ML 2 ml VIAL IV PRN (00:17)
[2020-05-26] MEDS: Heparin 5000 UNITS/ML 1 mL VIAL SUBCUT SCH (06:12)
[2020-05-26] MEDS: Lactated Ringers 1000 ml BAG 1,000 ML IV SCH (06:19)
[2020-05-26 06:37] LABS: BUN/Creatinine Ratio 11.8 (8-20); Calcium 8.2 mg/dL (8.6-10.3); EGFR African American 149.9 (>60); EGFR Non-African American 123.9 (>60); Potassium 3.5 mmol/L (3.5-5.0)
[2020-05-26 06:44] LABS: ABS Eosinophils 0.1 10^3/ul (0-0.6); ABS Lymphocytes 1.1 10^3/ul (1.0-4.8); ABS Monocytes 0.2 10^3/ul (0-0.8); ABS Neutrophils 2.5 10^3/ul (1.5-7.7); Eosinophil % 3.6 %; Hematocrit 29 % (35-47); Hemoglobin 10.1 g/dL (12.0-16.0); Lymphocyte % 27.4 %; Mean Corpuscular HGB Conc 35 g/dL (31-36); Mean Corpuscular Hemoglobin 32 pg (27-31); Mean Corpuscular Volume 90 fL (80-97); Mean Platelet Volume 7.1 fL (7.4-10.4); Platelet Count 192 10^3/uL (150-450); Red Blood Count 3.18 10^6 /uL (3.70-4.87); Red Cell Distribution Width 14 % (10-15); White Blood Count 3.9 10^3/uL (3.5-10.8)
[2020-05-26] MEDS ORDERED: oxyCODONE/Acetamin 5/325 mg TAB PO PRN (10:29)
[2020-05-26 10:59] VITALS: BP 108/69
== END 2020-05-26 15:39 | disposition home health service (06) | DRG 331 ==
LOC: AA 05:49 → SSU 14:01
PROVIDERS: ADMIT Surgery; ATTEND Surgery